=== PATIENT | female | born 1985 | race Two or more races ===

== ENCOUNTER 2019-10-19 06:00 | Outpatient (CLI) | payer BC | END 2019-10-19 06:05 | disposition home or self-care (01) | LOC: EDBD → LAB 06:00 → CIR.AMB 10-21 12:12 → EDSTATUS 10-21 12:45 → CIR.AMB 10-21 12:45 | PROVIDERS: ATTEND Obstetrics & Gynecology Maternal & Fetal Medicine | DX: O02.1 Missed abortion (principal); Z20.828 Contact with and (suspected) exposure to other viral communicable diseases; Z01.818 Encounter for other preprocedural examination ==